=== PATIENT | female | born 1985 | race Caucasian/White ===

== ENCOUNTER 2020-10-13 21:42 | Emergency (ER) | payer OTHER ==
[2020-10-13] MEDS ORDERED: Ondansetron PF 4 MG/2 ML Vial ONE (22:18)
[2020-10-13] MEDS ORDERED: Dicyclomine 20 MG TAB ONE (22:19)
== END 2020-10-13 23:30 | disposition home or self-care (01) ==
LOC: CSHERS 21:42
DX: R11.2 Nausea with vomiting, unspecified (principal); R19.7 Diarrhea, unspecified
CPT/HCPCS: 96374; J2405